=== PATIENT | female | born 1950 | race Caucasian/White ===

== ENCOUNTER 2021-04-06 07:20 | Day surgery (SDC) | payer MEDICARE, BC ==
[~2021-04-06 07:20] MED LIST: 24 HOUR ALLERG9.9 ML; ALBU90OI6 INH; AZIT250 PO; BENZ100A PO; HYDHOMSY; LISI20; METHI10 PO; Norco 10-325 T1 EACH PO; Omeprazole20 M1; PRED20 PO; Pseudoephedrine30 MG PO; ZESTORETIC 20-121 EA
[2021-04-07] MEDS ORDERED: AMOCLA875 PO (17:35)
== END 2021-04-06 23:00 | disposition home or self-care (01) ==
LOC: MOI US 07:20 → MOI MAM 08:00 → MOI US 08:00
DX: C44.599 Other specified malignant neoplasm of skin of other part of trunk (principal); N63.10 Unspecified lump in the right breast, unspecified quadrant; C79.2 Secondary malignant neoplasm of skin; D47.2 Monoclonal gammopathy
CPT/HCPCS: 38505; 76942; 88305; 88341; 88342; 88360; 88381

== ENCOUNTER 2021-04-07 14:31 | Emergency (ER) | payer MEDICARE, BC ==
[~2021-04-07] VITALS: Ht 182.9 cm; Wt 104.3 kg
[2021-04-07 14:49] LABS: Hematocrit 28.2 % (33.0-51.0); Hemoglobin 9.3 g/dL (11.5-16.0); Mean Corpuscular HGB 25.7 pg (26.0-34.0); Mean Corpuscular Volume 78 fL (80-100); Mean Platelet Volume 9.1 fL (9.1-12.4); Platelet Count 340 K/mm3 (150-400); RDW Coefficient Variation 17.9 % (11.7-14.2); RDW Standard Deviation 48.8 fL (35.1-46.3); Red Blood Cell Count 3.62 M/mm3 (3.80-5.20)
[2021-04-07 14:58] LABS: BASOPHILS ABSOLUTE AUTO 0.06 K/mm3 (0.00-0.23); BASOPHILS PERCENT AUTO 0 % (0-2); EOSINOPHILS ABSOLUTE AUTO 21.19 K/mm3 (0.00-0.68); EOSINOPHILS PERCENT AUTO 25 % (0-6); IMMATURE GRAN ABSOLUTE AUTO 4.96 K/mm3 (0.00-0.10); IMMATURE GRAN PERCENT AUTO 6 % (0-1); LYMPHOCYTES ABSOLUTE AUTO 2.78 K/mm3 (0.84-5.20); LYMPHOCYTES PERCENT AUTO 3 % (21-46); MONOCYTES ABSOLUTE AUTO 4.27 K/mm3 (0.16-1.47); MONOCYTES PERCENT AUTO 5 % (4-13); NEUTROPHILS ABSOLUTE AUTO 52.84 K/mm3 (1.96-9.15); NEUTROPHILS PERCENT AUTO 61 % (41-73)
[2021-04-07 15:08] LABS: Albumin, Blood 1.9 g/dL (3.4-5.0); Albumin/Globulin Ratio 0.5 (0.8-1.8); Bilirubin, Total 0.6 mg/dL (0.1-1.0); Calcium, Blood 8.3 mg/dL (8.5-10.1); Creatinine, Blood 1.81 mg/dL (0.40-1.00); Globulin, Blood 4.2 g/dL (2.2-4.0); Potassium, Blood 3.4 mmol/L (3.5-5.5); Total Protein, Blood 6.1 g/dL (6.4-8.2)
[2021-04-07] MEDS ORDERED: AMOCLA875 PO (17:35)
[2021-04-07 17:39] LABS: BAND PERCENT MAN 2 % (0-8); BASOPHILS PERCENT MAN 0 % (0-2); EOSINOPHILS PERCENT MAN 23 % (0-6); LYMPHOCYTES % ATYPICAL MANUAL 2 % (0-0); LYMPHOCYTES ABSOLUTE MAN 5.16 K/mm3 (0.84-5.20); LYMPHOCYTES PERCENT MAN 4 % (21-46); METAMYELOCYTE ABSOLUTE MAN 0.86 K/mm3 (0.00-0.00); METAMYELOCYTE PERCENT MAN 1 % (0-0); MONOCYTES ABSOLUTE MAN 6.02 K/mm3 (0.16-1.47); MONOCYTES PERCENT MAN 7 % (4-13); NEUTROPHILS ABSOLUTE MAN 54.24 K/mm3 (1.96-9.15); SEG NEUTROPHILS PERCENT MAN 61 % (41-73); TOTAL CELLS COUNTED 100
== END 2021-04-07 18:02 | disposition home or self-care (01) ==
LOC: ER 14:31
PROVIDERS: Emergency Medicine
DX: J18.9 Pneumonia, unspecified organism (principal); J44.0 Chronic obstructive pulmonary disease with (acute) lower respiratory infection; I10 Essential (primary) hypertension; Z79.52 Long term (current) use of systemic steroids; Z79.899 Other long term (current) drug therapy
CPT/HCPCS: 71046; 80053; 85025; 93005; 93010; 99284-25; A9270; J7030

== ENCOUNTER 2021-05-05 14:07 | Emergency (ER) | payer MEDICARE, BC ==
[~2021-05-05] VITALS: Ht 182.9 cm; Wt 90.7 kg
[~2021-05-05 14:07] MED LIST changes: +AMOCLA875 PO
[2021-05-05] MEDS ORDERED: HYDMOR2 PO (16:53)
== END 2021-05-05 17:06 | disposition home or self-care (01) ==
LOC: ER 14:07
DX: S42.301A Unspecified fracture of shaft of humerus, right arm, initial encounter for closed fracture (principal); I10 Essential (primary) hypertension; J44.9 Chronic obstructive pulmonary disease, unspecified; Z79.899 Other long term (current) drug therapy; X50.1XXA Overexertion from prolonged static or awkward postures, initial encounter
CPT/HCPCS: 24505; 73060; 73080; 96374-59; 99283-25; J1170